=== PATIENT | female | born 1985 | race Caucasian/White ===

== ENCOUNTER 2017-04-28 19:06 | Emergency (ER) | payer MEDICAID ==
--- NOTE | 2017-04-28 20:03 | ER Document Report ---
HPI - HPI Pain Level: 4 Context: 31 yo female c/o cough x 4 days. Associated Symptoms: Body/muscle aches, Nonproductive cough Exacerbated by: Denies Relieved by: Denies Similar symptoms previously: Yes Recently seen / treated by doctor: No - CARDIOVASCULAR Cardiovascular: DENIES: Chest pain - DERM Skin Color: Normal Past Medical History - General Information source: Patient - Social History Smoking Status: Current Every Day Smoker Chew tobacco use (# tins/day): No Frequency of alcohol use: None Drug Abuse: None Lives with: Family Family History: Reviewed & Not Pertinent Pulmonary Medical History: Reports: Hx Asthma Renal/ Medical History: Denies: Hx Peritoneal Dialysis Past Surgical History: Reports: Hx Abdominal Surgery - hernia, Hx Section - x2, Hx Cholecystectomy - Immunizations Hx Diphtheria, Pertussis, Tetanus Vaccination: Yes Vertical Provider Document - CONSTITUTIONAL Agree With Documented VS: Yes Exam Limitations: No Limitations General Appearance: WD/WN, No Apparent Distress - INFECTION CONTROL TRAVEL OUTSIDE OF THE [place] IN LAST 30 DAYS: No - HEENT HEENT: Atraumatic, PERRLA - NECK Neck: Normal Inspection, Supple - RESPIRATORY Respiratory: Rhonchi - few rhonci RLL, no wheeze O2 Sat by Pulse Oximetry: 99 - CARDIOVASCULAR Cardiovascular: Regular Rate, Regular Rhythm - NEURO Level of Consciousness: Awake, Alert, Appropriate - DERM Integumentary: Warm, Dry Course - Re-evaluation Re-evalutation: 04/28/17 20:02 H&P c/w viral URI. CXR negative for pneumonia. results reviewed with patient. no resp distress. will treat symptomatically. pt stable for discharge - Vital Signs Vital signs: Temp Pulse Resp BP Pulse Ox 99.3 F 80 16 150/88 H 99 04/28/17 19:20 04/28/17 19:20 04/28/17 19:20 04/28/17 19:20 04/28/17 19:20 Discharge - Discharge Clinical Impression: URI (upper respiratory infection) Qualifiers: URI type: unspecified viral URI Qualified Code(s): J06.9 - Acute upper respiratory infection, unspecified; B97.89 - Other viral agents as the cause of diseases classified elsewhere Condition: Stable Disposition: HOME, SELF-CARE Instructions: Upper Respiratory Illness ([facility]), Cough Suppressant & Expectorant Medications Additional Instructions: Your chest xray is negative for pneumonia Your symptoms are consistent with a viral upper respiratory infection, no antibiotics are indicated recommend over the counter Mucinex along with prescription cough suppressant as needed Prescriptions: Benzonatate [Tessalon Perles 100 mg Capsule] 200 mg PO Q8HP PRN #40 capsule PRN Reason:
--- NOTE | 2017-04-28 20:23 | RADIOLOGY REPORT (SQ) ---
EXAM DESCRIPTION: CHEST PA/LAT COMPLETED DATE/TIME: 04/28/2017 8:09 pm REASON FOR STUDY: cough COMPARISON: None. EXAM PARAMETERS: NUMBER OF VIEWS: two views TECHNIQUE: Digital Frontal and Lateral radiographic views of the chest acquired. RADIATION DOSE: NA LIMITATIONS: none FINDINGS: LUNGS AND PLEURA: No opacities, masses or pneumothorax. No pleural effusion. MEDIASTINUM AND HILAR STRUCTURES: No masses or contour abnormalities. HEART AND VASCULAR STRUCTURES: Heart normal size. No evidence for failure. BONES: No acute findings. HARDWARE: None in the chest. OTHER: No other significant finding. IMPRESSION: NO SIGNIFICANT RADIOGRAPHIC FINDING IN THE CHEST. TECHNICAL DOCUMENTATION: JOB ID: [id number] [employer]- All Rights Reserved
[2017-04-28] MEDS ORDERED: BENZONATATE 100 MG CAPSULE PO ONE (20:31)
[2017-04-28 20:47] VITALS: BP 135/96
== END 2017-04-28 20:50 | disposition home or self-care (01) ==
LOC: ER 19:06
DX: J06.9 Acute upper respiratory infection, unspecified (principal); B97.89 Other viral agents as the cause of diseases classified elsewhere; M79.1 Myalgia; F17.200 Nicotine dependence, unspecified, uncomplicated; Z90.49 Acquired absence of other specified parts of digestive tract
CPT/HCPCS: 99283; 71020; J3490

== ENCOUNTER 2017-05-09 13:28 | Emergency (ER) | payer MEDICAID ==
--- NOTE | 2017-05-09 14:42 | ER Document Report ---
ED General - General Chief Complaint: Sore Throat Stated Complaint: NAUSEA Time Seen by Provider: 05/09/17 14:27 Notes: Patient is a 31-year-old female presents emergency department complaining of dry cough intermittently for the past week and a half but more recently sore throat with hoarseness and occasional nausea. Patient states that she was seen here over week ago and diagnosed with an upper respiratory infection which resolved. Patient states that for the past 2 days she has had a sore throat that she described as scratchy. She denies any difficulty breathing, difficulty swallowing. She denies any fever, chills, nasal drainage, sinus pressure, headache, earache. States she has been taking [id number] cough medicine without any relief. She denies any sick contacts. Patient is a smoker. She smokes half a pack a day. She does have a history of asthma. She states that she does not take her Ventolin inhaler. Primary care physician is in [place]. TRAVEL OUTSIDE OF THE [place] IN LAST 30 DAYS: No - Related Data Allergies/Adverse Reactions: acetaminophen [From [place]] Allergy (Verified 04/28/17 19:19) amoxicillin Allergy (Verified 04/28/17 19:19) hydrocodone [From [place]] Allergy (Verified 04/28/17 19:19) Penicillins Allergy (Verified 04/28/17 19:19) Past Medical History - Social History Smoking Status: Current Every Day Smoker Family History: Reviewed & Not Pertinent Patient has suicidal ideation: No Patient has homicidal ideation: No Pulmonary Medical History: Reports: Hx Asthma Renal/ Medical History: Denies: Hx Peritoneal Dialysis Past Surgical History: Reports: Hx Abdominal Surgery - hernia, Hx Section - x2, Hx Cholecystectomy - Immunizations Hx Diphtheria, Pertussis, Tetanus Vaccination: Yes Review of Systems - Review of Systems Constitutional: No symptoms reported EENT: See HPI Cardiovascular: No symptoms reported Respiratory: No symptoms reported Gastrointestinal: See HPI Genitourinary: No symptoms reported -: Yes All other systems reviewed and negative Physical Exam - Vital signs Vitals: Temp Pulse Resp BP Pulse Ox 98.8 F 84 16 144/100 H 99 05/09/17 13:30 05/09/17 13:30 05/09/17 13:30 05/09/17 13:30 05/09/17 13:30 - Notes Notes: PHYSICAL EXAM GENERAL: Alert, interacts well. HEAD: Normocephalic, atraumatic. EYES: Pupils equal, round, and reactive to light. Extraocular movements intact. ENT: Oral mucosa moist, tongue midline. Uvula midline. Airway patent. No evidence of tonsillar enlargement, peritonsillar abscess, retropharyngeal abscess. NECK: Full range of motion. Supple. Trachea midline. LUNGS: Clear to auscultation bilaterally, no wheezes, rales, or rhonchi. No respiratory distress. HEART: Regular rate and rhythm. No murmurs, gallops, or rubs. ABDOMEN: Soft, nondistended, nontender. No guarding, rebound, or rigidity.. Bowel sounds present in all 4 quadrants. EXTREMITIES: Moves all 4 extremities spontaneously. No edema, radial and dorsalis pedis pulses 2/4 bilaterally. No cyanosis. NEUROLOGICAL: Alert and oriented x4. Normal speech. PSYCH: Normal affect, normal mood. SKIN: Warm, dry, normal turgor. No rashes or lesions noted. Course - Re-evaluation Re-evalutation: 05/09/17 16:14 Patient presents with multiple vague complaints that did not appear to be concerning for any acute life-threatening pathology. Vitals are within normal limits at triage and at time of discharge. Physical examination is unremarkable. Patient has tolerated oral intake without difficulty. Patient was not noted to be in distress at any point during their ER visit. At this time, based on the reassuring evaluation, I do not suspect an acute [place], pulmonary embolus, aortic dissection, acute intra-abdominal pathology, stroke, or sepsis.Will discharge with return precautions and follow-up recommendations. Verbal discharge instructions given a the bedside and opportunity for questions given. Medication warnings reviewed. Patient is in agreement with this plan and has verbalized understanding of return precautions and the need for primary care follow-up in the next 24-72 hours. - Vital Signs Vital signs: Temp Pulse Resp BP Pulse Ox 98.8 F 84 16 144/100 H 99 05/09/17 13:30 05/09/17 13:30 05/09/17 13:30 05/09/17 13:30 05/09/17 13:30 Discharge - Discharge Clinical Impression: Sore throat Rhinitis Qualifiers: Rhinitis type: allergic Chronicity: acute Allergic rhinitis trigger: unspecified Allergic rhinitis seasonality: seasonal Qualified Code(s): J30.2 - Other seasonal allergic rhinitis Condition: Good Disposition: HOME, SELF-CARE Instructions: Sore Throat ([facility]), OTC Antihistamines ([facility]), Hay Fever ([facility]), Nasal Corticosteroid Inhaler ([facility]) Additional Instructions: Please look into purchasing Corrine-D or Claritin-D [id number] to help with your seasonal allergies. Otherwise he can follow-up with your primary care provider
[2017-05-09 15:14] LABS: APPEARANCE,URINE CLEAR; BILIRUBIN,URINE NEGATIVE (NEGATIVE); GLUCOSE, URINE NEGATIVE (NEGATIVE); KETONES,URINE NEGATIVE (NEGATIVE); LEUKOCYTE ESTERASE,URINE NEGATIVE (NEGATIVE); NITRITE,URINE NEGATIVE (NEGATIVE); PROTEIN,URINE NEGATIVE (NEGATIVE); URINE SPECIFIC GRAVITY 1.008; UROBILINOGEN,URINE NEGATIVE mg/dL (<2.0)
[2017-05-09] MEDS ORDERED: LORATADINE/PSEUDOEPHEDRINE SUL 10-240 MG TAB.SR.24H PO ONE (16:17)
[2017-05-09 16:30] VITALS: BP 138/89
== END 2017-05-09 16:25 | disposition home or self-care (01) ==
LOC: ER 13:28
DX: J02.9 Acute pharyngitis, unspecified (principal); J45.909 Unspecified asthma, uncomplicated; R05 Cough; R49.0 Dysphonia; R11.0 Nausea; F17.200 Nicotine dependence, unspecified, uncomplicated; Z88.5 Allergy status to narcotic agent; Z88.0 Allergy status to penicillin
CPT/HCPCS: 81001; 81025; 87070; 87880; 99283

== ENCOUNTER 2017-05-15 21:02 | Emergency (ER) | payer MEDICAID ==
[2017-05-15] MEDS ORDERED: ONDANSETRON HCL INJ/PF 4 MG/2 ML SDV IV ONE (21:39)
--- NOTE | 2017-05-15 21:49 | ER Document Report ---
ED Medical Screen (RME) - General Chief Complaint: Abdominal Pain Stated Complaint: ABDOMINAL PAIN Time Seen by Provider: 05/15/17 21:31 TRAVEL OUTSIDE OF THE [place] IN LAST 30 DAYS: No - HPI Notes: 05/15/17 21:41 Patient is a 31-year-old asthma and tobacco abuse who presents the ED complaining of abdominal pain, nausea without vomiting 2 days. Pt states that she has felt diaphoretic on occasion as well. Patient states she still eating and drinking without any difficulties, but does have a decreased appetite. The pain does not radiate and is described as an ache/sharp. Patient states that her abdominal pain is located in the epigastric region as well as the right lower quadrant area. Patient states that she has had a cholecystectomy in the past as well as C-sections. Sitting and laying supine help. Ambulation, coughing, laughing make the pain worse. Denies any headache, fever, URI, sore throat, chest pain, palpitations, syncope, cough, shortness of breath, wheeze, dyspnea, diarrhea/constipation, urinary retention, dysuria, hematuria, back pain , loss of control of bowel or bladder, or rash. I did not order any imaging due to the limited abdominal exam (no table for accurate assessment). I have treated and performed a rapid initial assessment of this patient. A comprehensive ED assessment and evaluation of the patient, analysis of test results and completion of medical decision making process will be conducted by additional ED providers. PHYSICAL EXAMINATION: GENERAL: Well-appearing, well-nourished and in no acute distress. Pt sitting comfortably with legs crossed watching a video on her phone. ambulating w/o any difficulty. EYES: Pupils equal round and reactive to light, extraocular movements intact, sclera anicteric, conjunctiva are normal. LUNGS: Breath sounds clear to auscultation bilaterally and equal. No wheezes rales or rhonchi. HEART: Regular rate and rhythm without murmurs, rubs, gallops. ABDOMEN: Soft, nondistended abdomen. No guarding, no rebound. No masses appreciated. Normal bowel sounds present. No CVA tenderness bilaterally. Tenderness to the epigastric area as well as the RLQ, but difficult to accurately assess due to no exam table. PSYCH: Normal mood, normal affect. - Related Data Allergies/Adverse Reactions: acetaminophen [From [place]] Allergy (Verified 05/09/17 16:43) amoxicillin Allergy (Verified 05/09/17 16:43) hydrocodone [From [place]] Allergy (Verified 05/09/17 16:43) Penicillins Allergy (Verified 05/09/17 16:43) Past Medical History Pulmonary Medical History: Reports: Hx Asthma Renal/ Medical History: Denies: Hx Peritoneal Dialysis Past Surgical History: Reports: Hx Abdominal Surgery - hernia, Hx Section - x2, Hx Cholecystectomy - Immunizations Hx Diphtheria, Pertussis, Tetanus Vaccination: Yes Physical Exam - Vital signs Vitals: Temp Pulse Resp BP Pulse Ox 99.1 F 103 H 18 143/87 H 100 05/15/17 21:04 05/15/17 21:04 05/15/17 21:04 05/15/17 21:04 05/15/17 21:04 Course - Vital Signs Vital signs: Temp Pulse Resp BP Pulse Ox 99.1 F 103 H 18 143/87 H 100 05/15/17 21:04 05/15/17 21:04 05/15/17 21:04 05/15/17 21:04 05/15/17 21:04
[2017-05-15 22:37] LABS: ABSOLUTE BASOPHILS # (AUTO) 0.1 10^3/uL (0.0-0.2); ABSOLUTE EOSINOPHILS # (AUTO) 0.3 10^3/uL (0.0-0.6); ABSOLUTE LYMPHOCYTES (AUTO) 2.9 10^3/uL (0.5-4.7); ABSOLUTE MONOCYTES (AUTO) 0.8 10^3/uL (0.1-1.4); ABSOLUTE NEUT (AUTO) 8.8 10^3/uL (1.7-8.2); BASOPHILS % (AUTO) 0.7 % (0-2); EOSINOPHILS % (AUTO) 2.3 % (0-6); HEMATOCRIT 35.9 % (36.0-47.0); HEMOGLOBIN 11.8 g/dL (12.0-15.5); HGB HCT DIFFERENCE -0.5; LYMPHOCYTES % (AUTO) 22.8 % (13-45); MEAN CORPUSCULAR HEMOGLOBIN 25.8 pg (27.0-33.4); MEAN CORPUSCULAR HGB CONC 32.9 g/dL (32.0-36.0); MEAN CORPUSCULAR VOLUME 79 fl (80-97); RED BLOOD COUNT 4.58 10^6/uL (3.72-5.28); RED CELL DISTRIBUTION WIDTH 16.3 % (11.5-14.0); SEGMENTED NEUTROPHILS % (AUTO) 68.2 % (42-78); WHITE BLOOD COUNT 12.9 10^3/uL (4.0-10.5)
[2017-05-15 22:48] LABS: APPEARANCE,URINE SLIGHTLY-CLOUDY; BILIRUBIN,URINE NEGATIVE (NEGATIVE); GLUCOSE, URINE NEGATIVE (NEGATIVE); KETONES,URINE NEGATIVE (NEGATIVE); LEUKOCYTE ESTERASE,URINE NEGATIVE (NEGATIVE); NITRITE,URINE NEGATIVE (NEGATIVE); PROTEIN,URINE NEGATIVE (NEGATIVE); URINE SPECIFIC GRAVITY 1.023
[2017-05-15] MEDS ORDERED: NORMAL SALINE 1000 ML 1,000 ML IV ONE (22:48)
--- NOTE | 2017-05-15 22:53 | ER Document Report ---
ED General - General Chief Complaint: Abdominal Pain Stated Complaint: ABDOMINAL PAIN Time Seen by Provider: 05/15/17 21:31 Notes: Patient is a 31-year-old female presents with complaint of abdominal pain and vomiting. Said symptoms started 724 hours ago. Pain is mostly in the right side of the abdomen. No diarrhea. No blood in stool. She does have history of cholecystectomy as well as ventral hernia repair. She says it hurts to sit up or cough. No abnormal vaginal discharge or bleeding. No dysuria. No other complaints at this time. TRAVEL OUTSIDE OF THE [place] IN LAST 30 DAYS: No - Related Data Allergies/Adverse Reactions: acetaminophen [From [place]] Allergy (Verified 05/09/17 16:43) amoxicillin Allergy (Verified 05/09/17 16:43) hydrocodone [From [place]] Allergy (Verified 05/09/17 16:43) Penicillins Allergy (Verified 05/09/17 16:43) Past Medical History - Social History Smoking Status: Unknown if Ever Smoked Frequency of alcohol use: None Drug Abuse: None Family History: Reviewed & Not Pertinent Patient has suicidal ideation: No Patient has homicidal ideation: No Pulmonary Medical History: Reports: Hx Asthma Renal/ Medical History: Denies: Hx Peritoneal Dialysis Past Surgical History: Reports: Hx Abdominal Surgery - hernia, Hx Section - x2, Hx Cholecystectomy - Immunizations Hx Diphtheria, Pertussis, Tetanus Vaccination: Yes Review of Systems - Review of Systems Notes: My Normal Review Basic REVIEW OF SYSTEMS: CONSTITUTIONAL : Denies fever, chills, or sweats. Denies recent illness. EENT: Denies eye, ear, throat, or mouth pain or symptoms. Denies nasal or sinus congestion. CARDIOVASCULAR: Denies chest pain. RESPIRATORY: Denies cough, cold, or chest congestion. Denies shortness of breath, difficulty breathing, or wheezing. GASTROINTESTINAL: Right-sided abdominal pain. Some vomiting. GENITOURINARY: Denies difficulty urinating, painful urination, burning, frequency, or blood in urine. FEMALE GENITOURINARY: Denies vaginal bleeding, abnormal or irregular periods. MUSCULOSKELETAL: Denies neck or back pain or joint pain or swelling. SKIN: Denies rash or skin lesions. NEUROLOGICAL: Denies altered mental status or loss of consciousness. Denies headache. Denies weakness or paralysis or loss of use of either side. Denies problems with gait or speech. Denies sensory or motor loss. ALL OTHER SYSTEMS REVIEWED AND NEGATIVE. Physical Exam - Vital signs Vitals: Temp Pulse Resp BP Pulse Ox 99.1 F 103 H 18 143/87 H 100 05/15/17 21:04 05/15/17 21:04 05/15/17 21:04 05/15/17 21:05/15/17 21:04 - Notes Notes: General Appearance: Well nourished, alert, cooperative, no acute distress, no obvious discomfort. Vitals: reviewed, See vital signs table. Head: no swelling or tenderness to the head Eyes: PERRL, EOMI, Conjuctiva clear Mouth: No decreasd moisture Throat: No tonsillar inflammation, No airway obstruction, Lungs: No wheezing, No rales, No rhonci, No accessory muscle use, good air exchange bilaterally. Heart: Normal rate, Regular rythm, No murmur, no rub Abdomen: Normal BS, soft, No rigidity, moderate pain to palpation over the right side of the abdomen., No guarding, no rebound, no abdominal masses, no organomegaly Extremities: strength 5/5 in all extremities, good pulses in all extremities, no swelling or tenderness in the extremities, no edema. Skin: warm, dry, appropriate color, no rash Neuro: speech clear, oriented x 3, normal affect, responds appropriately to questions. Course - Re-evaluation Re-evalutation: 05/16/17 03::28Patient's ultrasound results did show a endometrial lesion as well as the ovarian cyst. I informed her the importance of follow-up to make sure that these do not represent cancer. I did print off a copy of her ultrasound results and given to her so she could take him to see the vamp creaser. I have referred her to the vamp creaser. Patient otherwise clinically looks well and I feel safe to be discharged home. Patient encouraged to return to ER if she has worsening pain, vomiting, heavy bleeding, or feels unwell. Patient agrees with plan will be discharged home. Dictation of this chart was performed using voice recognition software; therefore, there may be some unintended grammatical errors. - Vital Signs Vital signs: Temp Pulse Resp BP Pulse Ox 99.1 F 103 H 18 143/87 H 100 05/15/17 21:04 05/15/17 21:04 05/15/17 21:04 05/15/17 21:04 05/15/17 21:04 - Laboratory Result Diagrams: 05/15/17 22:07 05/15/17 22:07 Laboratory results interpreted by me: 05/15/17 05/15/17 22:07 22:07 WBC 12.9 H Hgb 11.8 L Hct 35.9 L MCV 79 L MCH 25.8 L RDW 16.3 H Absolute Neutrophils 8.8 H Urine Urobilinogen 2.0 H Discharge - Discharge Clinical Impression: Lesion of endometrium Ovarian cyst Qualifiers: Laterality: bilateral Qualified Code(s): N83.201 - Unspecified ovarian cyst, right side Abdominal pain Qualifiers: Abdominal location: lower abdomen, unspecified Qualified Code(s): R10.30 - Lower abdominal pain, unspecified Condition: Good Disposition: HOME, SELF-CARE Instructions: Oral Narcotic Medication ([facility]) Additional Instructions: Please follow up with the vamp creaser for reevaluation and repeat ultrasounds to look at your ovarian cysts and also to determine if you require a biopsy of the endometrial lesion seen on Ultrasound. This is very important to do because occasionally this lesions can represent cancer. Please return to the ER if you have fevers, heavy bleeding, or feel unwell. Please take your ultrasound results with you to your appointment. Prescriptions: Tramadol HCl [Ultram 50 mg Tablet] 50 mg PO Q6HP PRN #12 tablet PRN Reason: Referrals: SAVANNA ESPINOZA MD [ACTIVE STAFF] - Follow up in 3-5 days
[2017-05-15 22:55] LABS: ALANINE AMINOTRANSFERASE 28 U/L (9-52); ALBUMIN 4.2 g/dL (3.5-5.0); ALKALINE PHOSPHATASE 82 U/L (38-126); ANION GAP 11 (5-19); ASPARTATE AMINO TRANSFERASE 17 U/L (14-36); BILIRUBIN,DIRECT 0.4 mg/dL (0.0-0.4); BILIRUBIN,TOTAL 0.6 mg/dL (0.2-1.3); BLOOD UREA NITROGEN 7 mg/dL (7-20); CALCIUM 9.2 mg/dL (8.4-10.2); CARBON DIOXIDE 23 mmol/L (22-30); CHLORIDE 107 mmol/L (98-107); GLUCOSE 76 mg/dL (75-110); LIPASE 154.3 U/L (23-300); SODIUM 140.8 mmol/L (137-145)
[2017-05-15] MEDS ORDERED: FENTANYL CITRATE INJ/PF 100 MCG/2 ML AMPUL IV ONE (23:29)
--- NOTE | 2017-05-16 02:01 | RADIOLOGY REPORT (SQ) ---
EXAM DESCRIPTION: CT ABD/PELVIS WITH IV ONLY COMPLETED DATE/TIME: 05/16/2017 1:11 am REASON FOR STUDY: RLQ abdominal pain COMPARISON: None. TECHNIQUE: CT scan of the abdomen and pelvis performed using helical scanning technique with dynamic intravenous contrast injection. No oral contrast. Images reviewed with lung, soft tissue, and bone windows. Reconstructed coronal and sagittal MPR images reviewed. Delayed images for evaluation of the urinary system also acquired. All images stored on PACS. All CT scanners at this facility use dose modulation, iterative reconstruction, and/or weight based d osing when appropriate to reduce radiation dose to as low as reasonably achievable (ALARA). [facility]: Dose Right [facility]: CareDose [facility]: Dose Right [facility]: Teradose 4D [facility]: [employer] CONTRAST TYPE AND DOSE: contrast/concentration: Isovue 370.00 mg/ml; Total Contrast Delivered: 93.0 ml; Total Saline Delivered: 22.0 ml RENAL FUNCTION: None required. The patient is less than 50 years old. RADIATION DOSE: Up-to-date CT equipment and radiation dose reduction techniques were employed. CTDIv ol: 19.6 - 19.6 mGy. DLP: 2047 mGy-cm.. LIMITATIONS: None. FINDINGS: LOWER CHEST: No significant findings. No nodules or infiltrates. LIVER: Normal size. No masses. No dilated ducts. SPLEEN: Normal size. No focal lesions. PANCREAS: No masses. No significant calcifications. No adjacent inflammation or peripancreatic fluid collections. Pancreatic duct not dilated. GALLBLADDER: Surgically absent. ADRENAL GLANDS: No significant masses or asymmetry. RIGHT KIDNEY AND URETER: No solid masses. No significant calcifications. No hydronephrosis or hyd roureter. Small likely benign cysts not definitively characterized. LEFT KIDNEY AND URETER: No solid masses. No significant calcifications. No hydronephrosis or hydr oureter. Small likely benign cysts not definitively characterize. AORTA AND VESSELS: No aneurysm. No dissection. Renal arteries, SMA, celiac without stenosis. RETROPERITONEUM: No retroperitoneal adenopathy, hemorrhage or masses. BOWEL AND PERITONEAL CAVITY: No masses or inflammatory changes. No free fluid or peritoneal masses. APPENDIX: Normal. PELVIS: Cystic prominence of bilateral ovaries measuring up to 3.5 cm on the left and 4.5 cm on the r ight. No free fluid. Moderate nonspecific distention of the urinary bladder. Nabothian cysts. ABDOMINAL WALL: No masses. No hernias. BONES: Minimal L5-S1 desiccated disc bulge. OTHER: No other significant finding. IMPRESSION: 1. Indeterminate cystic prominence of both ovaries measuring up to 4.5 cm on the right and 3.5 cm on left; pelvic sonogram recommended. 2. No acute findings. TECHNICAL DOCUMENTATION: JOB ID: [id number] Quality ID # [id number]: Final reports with documentation of one or more dose reduction techniques (e.g., Au tomated exposure control, adjustment of the mA and/or kV according to patient size, use of iterative reconstruction technique) 2010 [employer]- All Rights Reserved
--- NOTE | 2017-05-16 03:15 | RADIOLOGY REPORT (SQ) ---
EXAM DESCRIPTION: U/S NON OB PEL TV W/DOPPLER COMPLETED DATE/TIME: 05/16/2017 2:47 am REASON FOR STUDY: right pelvic pain, ovarian cyst COMPARISON: CT, 05/16/2017. TECHNIQUE: Dynamic and static grayscale images acquired of the pelvis via transvaginal approach and recorded on PACS. Additional selected color Doppler and spectral images recorded. LIMITATIONS: None. FINDINGS: UTERUS: 11.7 cm uterus contains a loop complex hypoechoic 1.2 cm component anteriorly with out significant vascularity possibly due to a fibroid. ENDOMETRIAL STRIPE: Endometrium contains a 1.6 x 1.5 x 1.1 cm complex predominantly hypoechoic compon ent without significant vascularity; remainder the stripe is 1.4 cm in thickness. CERVIX: No nabothian cysts. 3.4 cm length. RIGHT OVARY: A 5.3 cm right ovary contains a 4.3 cm complex cystic lesion. RIGHT OVARY DOPPLER: Normal arterial vascular flow without evidence for torsion. LEFT OVARY: A 4.0 cm left ovary contains a 3.4 cm cystic component. LEFT OVARY DOPPLER: Normal arterial vascular flow without evidence for torsion. FREE FLUID: None noted. OTHER: No other significant finding. MEASUREMENTS: UTERUS: 11.7 cm. ENDOMETRIAL STRIPE: Abnormal measuring up to 1.6 cm in thickness. RIGHT OVARY: 5.3 cm. LEFT OVARY: 4.0 cm. IMPRESSION: Indeterminate component of the endometrial stripe measures 1.6 cm and may indicate clot/ hemorrhage ; cannot exclude polyp/ neoplasm. Additionally, there are indeterminate lesions of both o varies measuring up to 4.3 cm on the right and 3.4 cm on the left. Recommend 6 week surveillance son ogram and/or UTILITY MANAGER consultation. TECHNICAL DOCUMENTATION: JOB ID: [id number]- All Rights Reserved
[2017-05-16 03:47] VITALS: BP 129/81
== END 2017-05-16 03:47 | disposition home or self-care (01) ==
LOC: ER 21:02
DX: N94.9 Unspecified condition associated with female genital organs and menstrual cycle (principal); N83.201 Unspecified ovarian cyst, right side; N83.202 Unspecified ovarian cyst, left side; R10.30 Lower abdominal pain, unspecified; R11.10 Vomiting, unspecified; J45.909 Unspecified asthma, uncomplicated; Z90.49 Acquired absence of other specified parts of digestive tract; Z88.6 Allergy status to analgesic agent; Z88.0 Allergy status to penicillin; Z88.5 Allergy status to narcotic agent
CPT/HCPCS: 99284; 96374; 96375; 36415; 83690; 85025; 81025; 80053; 81001; 76830; 93976; 74177; J3010; J2405; J7030

== ENCOUNTER 2017-09-10 23:00 | Emergency (ER) | payer MEDICAID ==
[2017-09-11 01:11] LABS: APPEARANCE,URINE SLIGHTLY-CLOUDY; BILIRUBIN,URINE NEGATIVE (NEGATIVE); COLOR,URINE YELLOW; GLUCOSE, URINE NEGATIVE (NEGATIVE); KETONES,URINE NEGATIVE (NEGATIVE); LEUKOCYTE ESTERASE,URINE NEGATIVE (NEGATIVE); NITRITE,URINE NEGATIVE (NEGATIVE); PROTEIN,URINE NEGATIVE (NEGATIVE); URINE SPECIFIC GRAVITY 1.019
--- NOTE | 2017-09-11 02:46 | ER Document Report ---
ED General - General Chief Complaint: Abdominal Pain Stated Complaint: ABDOMINAL PAIN Time Seen by Provider: 09/11/17 02:30 Mode of Arrival: Ambulatory Information source: Patient Notes: This is a 31-year-old female with a history of kidney stones, hernia with mesh repair who presents to the emergency room with intermittent abdominal pain for the past week. Patient denies any nausea, vomiting, diarrhea or fever. Most of the patient's discomfort seems to be in the suprapubic area. She denies any abnormal vaginal discharge TRAVEL OUTSIDE OF THE [place] IN LAST 30 DAYS: No - HPI Onset: Last week Onset/Duration: Gradual Quality of pain: Sharp Severity: Moderate Pain Level: 3 Associated symptoms: denies: Chills, Diarrhea, Fever, Nausea, Vomiting, Shortness of breath Exacerbated by: Denies Relieved by: Denies Similar symptoms previously: Yes Recently seen / treated by doctor: No - Related Data Allergies/Adverse Reactions: acetaminophen [From [place]] Allergy (Verified 05/09/17 16:43) amoxicillin Allergy (Verified 05/09/17 16:43) hydrocodone [From [place]] Allergy (Verified 05/09/17 16:43) Penicillins Allergy (Verified 05/09/17 16:43) Past Medical History - General Information source: Patient - Social History Smoking Status: Current Every Day Smoker Cigarette use (# per day): Yes - Half pack per day Chew tobacco use (# tins/day): No Smoking Education Provided: No Frequency of alcohol use: None Drug Abuse: None Lives with: Family Family History: Reviewed & Not Pertinent Patient has suicidal ideation: No Patient has homicidal ideation: No Pulmonary Medical History: Reports: Hx Asthma Renal/ Medical History: Denies: Hx Peritoneal Dialysis Past Surgical History: Reports: Hx Abdominal Surgery - hernia, Hx Section - x2, Hx Cholecystectomy - Immunizations Hx Diphtheria, Pertussis, Tetanus Vaccination: Yes Review of Systems - Review of Systems Constitutional: denies: Chills, Fever EENT: No symptoms reported Cardiovascular: No symptoms reported Respiratory: No symptoms reported Gastrointestinal: See HPI Genitourinary: No symptoms reported Female Genitourinary: No symptoms reported Musculoskeletal: No symptoms reported Skin: No symptoms reported Neurological/Psychological: No symptoms reported Physical Exam - Vital signs Vitals: Temp Pulse Resp BP Pulse Ox 98.2 F 79 16 147/88 H 100 09/11/17 01:37 09/11/17 01:37 09/11/17 01:37 09/11/17 01:37 09/11/17 01:37 Notes: Physical exam: GENERAL: 31-year-old female, alert and oriented 3, no acute distress HEAD: Atraumatic, normocephalic. EYES: Pupils equal round and reactive to light, extraocular movements intact, sclera anicteric, conjunctiva are normal. ENT: TMs normal, nares patent, oropharynx clear without exudates. Moist mucous membranes. NECK: Normal range of motion, supple without obvious mass or JVD. LUNGS: Breath sounds clear to auscultation bilaterally and equal. No wheezes rales or rhonchi. HEART: Regular rate and rhythm without murmurs, rubs or gallops. ABDOMEN: Soft, normoactive bowel sounds. No tenderness to palpation. No guarding, no rebound. No masses appreciated. EXTREMITIES: Normal range of motion, no pitting or edema. No clubbing or cyanosis. NEUROLOGICAL: Cranial nerves II through XII grossly intact. Normal speech, moving all extremities. PSYCH: Normal mood, normal affect. SKIN: Warm, Dry, normal turgor, no rashes or lesions noted. Course - Re-evaluation Re-evalutation: 09/11/17 04:03 Note: Patient does state she has had UTIs in the past. She states that she has not responded well to Bactrim in the past. She does states she has had Keflex in the past without any problem. - Vital Signs Vital signs: Temp Pulse Resp BP Pulse Ox 98.2 F 79 16 147/88 H 100 09/11/17 01:37 09/11/17 01:37 09/11/17 01:37 09/11/17 01:37 09/11/17 01:37 - Laboratory Laboratory results interpreted by me: 09/11/17 00:20 Urine Urobilinogen 2.0 H - Diagnostic Test Radiology reviewed: Image reviewed, Reports reviewed - X-rays show no evidence of obstruction Discharge - Discharge Clinical Impression: UTI Condition: Stable Disposition: HOME, SELF-CARE Additional Instructions: Thank you for choosing [facility] for your care. The examination and treatment you have received in the Emergency Department today has been rendered on an emergency basis only and is not intended to be a substitute for complete medical care. You should contact your doctor as it is important that she/he examine you for any new or remaining problems. If your problem worsens or new symptoms appear and you are unable to arrange prompt follow-up care, return to the Emergency Department. Specific signs to look out for: Worsening abdominal pain, vomiting, not tolerating fluids or any concerns or getting worse Any other instructions: Rest, drink plenty of fluids, take antibiotics as prescribed. Primary Care Doctor's affiliated with [facility]: If you do not have a primary care doctor or you are unable to get an appointment during that time, you can try one of the doctor's below. These are internal medicine doctor's that have admitting priveledges to the hospital ( they will see you both in the office as well as in this hospital if you are ever hospitalized here). Dr. Alan Mendez [address], [place] [address] [phone] Dr Brooks Address: [address] , [place] [address] Dr Bermudez Address: [address] , [place] [address] If you don't have insurance: follow-up at the [facility] which is a free clinic. [address], [place] [address] [phone] Prescriptions: Cephalexin Monohydrate [Keflex 500 mg Capsule] 500 mg PO Q6H 5 Days capsule
--- NOTE | 2017-09-11 03:46 | RADIOLOGY REPORT (SQ) ---
EXAM DESCRIPTION: ACUTE ABDOMEN SERIES CLINICAL HISTORY: abdominal pain COMPARISON: None. FINDINGS: Single view of the chest with upright and spine views of the abdomen. Cardiomediastinal silhouette has normal size and contour. No consolidation, pneumothorax, pleural effusion. Prior cholecystectomy. Scattered air-filled loops of nondilated large and small bowel. Moderate amount of stool. No definite abnormal calcifications identified. Pelvic soft tissues are unremarkable. No acute osseous abnormalities. IMPRESSION: 1. No acute pulmonary process. 2. Nonobstructive bowel gas pattern.
[2017-09-11 04:24] VITALS: BP 139/72
== END 2017-09-11 04:24 | disposition home or self-care (01) ==
LOC: ER 23:00
DX: N39.0 Urinary tract infection, site not specified (principal); R10.9 Unspecified abdominal pain; F17.210 Nicotine dependence, cigarettes, uncomplicated
CPT/HCPCS: 74022; 81001; 81025; 99284

== ENCOUNTER 2017-10-04 17:09 | Emergency (ER) | payer MEDICAID ==
--- NOTE | 2017-10-04 18:39 | RADIOLOGY REPORT (SQ) ---
EXAM DESCRIPTION: HAND LEFT 3 VIEWS COMPLETED DATE/TIME: 10/04/2017 6:29 pm REASON FOR STUDY: pain left third finger COMPARISON: None. EXAM PARAMETERS: NUMBER OF VIEWS: Three views. TECHNIQUE: AP, lateral and oblique radiographic images acquired of the left hand. LIMITATIONS: None. FINDINGS: MINERALIZATION: Normal. BONES: Chronic appearing incompletely healed volar plate fracture involving the base of the 3rd middl e phalanx. Bones otherwise intact. JOINTS: No effusions. SOFT TISSUES: No soft tissue swelling. No foreign body. OTHER: No other significant finding. IMPRESSION: NO DEFINITE RADIOGRAPHIC EVIDENCE OF ACUTE INJURY. CHRONIC APPEARING INCOMPLETELY HEALE D VOLAR PLATE FRACTURE INVOLVING THE BASE OF THE 3RD MIDDLE PHALANX. CORRELATE WITH POINT TENDERNESS AND HISTORY OF PRIOR TRAUMA TECHNICAL DOCUMENTATION: JOB ID: [id number] [employer]- All Rights Reserved
--- NOTE | 2017-10-04 18:47 | ER Document Report ---
ED Hand/Wrist Injury - General Chief Complaint: Finger Injury Stated Complaint: FINGER INJURY Time Seen by Provider: 10/04/17 18:03 Mode of Arrival: Ambulatory Information source: Patient Notes: 32-year-old female presents to ED for complaint of left hand pain and swelling to the third finger. She states she was doing a lot of cleaning last night does not know what she did to the finger but it is swollen and painful. She states she took ibuprofen just before she came to the emergency room. She states she does not remember injuring this finger. TRAVEL OUTSIDE OF THE [place] IN LAST 30 DAYS: No - HPI Injury to: Middle finger Onset: This morning - Around 1 AM Where: Home, Indoors Timing: Still present Quality of pain: Achy, Sharp Pain Level: 4 Context: Other - States she was doing a lot of cleaning does not know how she injured it is started hurting around 1 AM and this morning it was swollen - Related Data Allergies/Adverse Reactions: acetaminophen [From [place]] Allergy (Verified 10/04/17 17:10) amoxicillin Allergy (Verified 10/04/17 17:10) hydrocodone [From [place]] Allergy (Verified 10/04/17 17:10) Penicillins Allergy (Verified 10/04/17 17:10) Past Medical History - General Information source: Patient - Social History Smoking Status: Current Every Day Smoker Cigarette use (# per day): Yes - Half pack per day Chew tobacco use (# tins/day): No Smoking Education Provided: Yes - 4 minutes Frequency of alcohol use: None Drug Abuse: None Lives with: Spouse/Significant other Family History: Arthritis, COPD, DM, Hypertension. denies: CAD, CVA, Hyperlipidemia, Malignancy, Thyroid Disfunction Patient has suicidal ideation: No Patient has homicidal ideation: No - Past Medical History Cardiac Medical History: Reports: None Pulmonary Medical History: Reports: Hx Asthma EENT Medical History: Reports: None Neurological Medical History: Reports: None Endocrine Medical History: Reports: None Renal/ Medical History: Reports: None Malignancy Medical History: Reports: None GI Medical History: Reports: None Musculoskeltal Medical History: Reports Hx Musculoskeletal Trauma Skin Medical History: Reports None Psychiatric Medical History: Reports: None Traumatic Medical History: Reports: None Past Surgical History: Reports: Hx Abdominal Surgery - hernia, Hx Section - x2, Hx Cholecystectomy, Hx Vascular Surgery - Repair of artery to right hand - Immunizations Hx Diphtheria, Pertussis, Tetanus Vaccination: Yes Review of Systems - Review of Systems Notes: Constitutional: [PRESENT: as per HPI. ABSENT: chills, fever(s), headache(s), weight gain, weight loss] Eyes: [ABSENT: visual disturbances] Ears: [ABSENT: hearing changes] Cardiovascular: [ABSENT: chest pain, dyspnea on exertion, edema, orthropnea, palpitations] Respiratory: [ABSENT: cough, hemoptysis] Gastrointestinal: [ABSENT: abdominal pain, constipation, diarrhea, hematemesis, hematochezia, nausea, vomiting] Genitourinary: [ABSENT: dysuria, hematuria] Musculoskeletal: Pain and swelling to the left third finger. States she does not remember injuring it but she was done a lot of housecleaning last night about 1:00 started her and this morning it was swollen when she woke up. Integumentary: Swelling to the left third finger no bruising no lacerations no abrasions Neurological: [ABSENT: abnormal gait, abnormal speech, confusion, dizziness, focal weakness, syncope] Psychiatric: [ABSENT: anxiety, depression, homicidal ideation, suicidal ideation ] Endocrine: [ABSENT: cold intolerance, heat intolerance, menstrual abnormalities , polydipsia, polyuria] Hematologic/Lymphatic: [ABSENT: easy bleeding, easy bruising, lymphadenopathy] Physical Exam - Vital signs Vitals: Temp Pulse BP Pulse Ox 98.9 F 78 151/94 H 100 10/04/17 17:20 10/04/17 17:20 10/04/17 17:20 10/04/17 17:20 - Notes Notes: PHYSICAL EXAMINATION: Blood pressure was 132/76 when I examined the patient as I did a manual blood pressure at that time GENERAL: 32-year-old well-appearing, well-nourished and in no acute distress. HEAD: Atraumatic, normocephalic. EYES: Pupils equal round and reactive to light, extraocular movements intact, conjunctiva are normal. ENT: Nares patent, oropharynx clear without exudates. Moist mucous membranes. NECK: Normal range of motion, supple without lymphadenopathy LUNGS: Breath sounds clear to auscultation bilaterally and equal. No wheezes rales or rhonchi. HEART: Regular rate and rhythm without murmurs ABDOMEN: Soft, nontender, nondistended abdomen. No guarding, no rebound. No masses appreciated. Female : deferred Musculoskeletal: Pain with range of motion to left third finger, swelling to left third finger. No bruising lacerations or abrasions to the finger no cyanosis. NEUROLOGICAL: Cranial nerves grossly intact. Normal speech, normal gait. Normal sensory, motor exams PSYCH: Normal mood, normal affect. SKIN: Warm, Dry, normal turgor, no rashes or lesions noted. Course - Re-evaluation Re-evalutation: 10/04/17 18:47 Discussed x-ray with patient and written report given to patient to follow-up with orthopedics. Patient has an old fracture to the base of the third finger on the left hand. This is with point tenderness is to the patient. Patient states she does not remember fracturing this finger at any time in the past. Patient was instructed on use of elevation ice and ibuprofen for the pain in her finger. Patient verbalized understanding of her instructions and need to follow-up with orthopedics. - Vital Signs Vital signs: Temp Pulse Resp BP Pulse Ox 98.9 F 78 132/76 H 100 10/04/17 17:20 10/04/17 17:20 10/04/17 18:21 10/04/17 17:20 - Diagnostic Test Radiology reviewed: Image reviewed, Reports reviewed Discharge - Discharge Clinical Impression: Pain and swelling to left third finger Condition: Stable Disposition: HOME, SELF-CARE Additional Instructions: You were seen today for pain and swelling to the left third finger. There is no acute injuries to this finger. X-rays show a chronic incompletely healed volar plate fracture to the base of the third finger. You will need to follow-up with orthopedics for further treatment to this incompletely healed fracture. ICE & ELEVATION: Apply ice packs frequently against the painful area. Many different schedules are recommended, such as "20 minutes on, 20 minutes off" or "one hour ice, two hours rest." If you need to work, you may need to go longer between ice treatments. You should plan to have the area ice packed AT LEAST one- fourth of the time. The ice should be applied over the wrap, tape, or splint, or over a layer of cloth -- not directly against the skin. Some ice bags have a built-in cloth and can be put directly on the skin. Your injured part should be elevated as much as possible over the next 48 hours. Try to keep the injury above the level of the heart. Avoid use of the injured area. Elevation and rest will decrease the swelling. USE OF NZTI-FIY-XUHSGPA IBUPROFEN: Ibuprofen (Advil, Nuprin, Medipren, Motrin IB) is a medication for fever and pain control. In addition, it has anti- inflammatory effects which may be beneficial, especially in the treatment of injuries. It's best to take ibuprofen with food. Persons with ulcer disease or allergy to aspirin should notify their physician of this before taking ibuprofen. Ibuprofen can be given every four to six hours, for a total of four doses daily. Age Pain or fever dose Antiinflammatory dose 6-8 yr 200 mg (1 tab) 200 mg (1 tab) 9-11 yr 200 mg (1 tab) 200-400 mg (1-2 tab) 11-14 yr 200-400 mg (1-2 tab) 400 mg (2 tab) 15-adult 400 mg (2 tab) 600 mg (3 tab) FOLLOW-UP CARE: If you have been referred to a physician for follow-up care, call the physician s office for an appointment as you were instructed or within the next two days. If you experience worsening or a significant change in your symptoms, notify the physician immediately or return to the Emergency Department at any time for re-evaluation. Forms: Elevated Blood Pressure, Smoking Cessation Education Referrals: GRACIE CARTER DO [ACTIVE STAFF] - Follow up as needed
[2017-10-04 20:00] VITALS: BP 128/88
== END 2017-10-04 19:58 | disposition home or self-care (01) ==
LOC: ER 17:09
DX: S69.92XA Unspecified injury of left wrist, hand and finger(s), initial encounter (principal); M79.645 Pain in left finger(s); M79.89 Other specified soft tissue disorders; F17.210 Nicotine dependence, cigarettes, uncomplicated; X58.XXXA Exposure to other specified factors, initial encounter
CPT/HCPCS: 99283; 99406

== ENCOUNTER 2017-10-22 20:50 | Emergency (ER) | payer MEDICAID ==
[2017-10-22 20:58] VITALS: BP 146/91
[2017-10-22] MEDS ORDERED: CEPHALEXIN 500 MG CAPSULE PO ONE (22:24)
[2017-10-22] MEDS ORDERED: SULFAMETHOXAZOLE/TRIMETHOPRIM 800-160 MG TABLET PO ONE (22:24)
--- NOTE | 2017-10-22 22:30 | ER Document Report ---
ED Skin Rash/Insect Bite/Abscs - General Chief Complaint: Sore on R groin area Stated Complaint: SWOLLEN AREA Time Seen by Provider: 10/22/17 21:38 Mode of Arrival: Ambulatory Information source: Patient Notes: 32-year-old female presents to ED for a swollen painful area to the right groin 5 days. She states is not very large but it is painful when something touches it otherwise it does not hurt. TRAVEL OUTSIDE OF THE [place] IN LAST 30 DAYS: No - HPI Patient complains to provider of: Tender/swollen area Onset: Other - 5 days Onset/Duration: Gradual Quality of pain: Sharp - When touched or when her close touch Severity: Moderate Skin Character: Abscess Quality of rash: Painful - When touched Identify cause: No Exacerbated by: Other - When either someone touches it or her clothes touch it Relieved by: Denies Similar symptoms previously: No Recently seen / treated by doctor: No - Related Data Allergies/Adverse Reactions: acetaminophen [From [place]] Allergy (Verified 10/04/17 17:10) amoxicillin Allergy (Verified 10/04/17 17:10) hydrocodone [From [place]] Allergy (Verified 10/04/17 17:10) latex Allergy (Verified 10/22/17 20:54) Penicillins Allergy (Verified 10/04/17 17:10) Past Medical History - General Information source: Patient - Social History Smoking Status: Current Every Day Smoker Cigarette use (# per day): Yes - Half pack a day Chew tobacco use (# tins/day): No Smoking Education Provided: Yes - 4 minutes Frequency of alcohol use: None Drug Abuse: None Lives with: Spouse/Significant other Family History: Arthritis, COPD, DM, Hypertension. denies: CAD, CVA, Hyperlipidemia, Malignancy, Thyroid Disfunction Patient has suicidal ideation: No Patient has homicidal ideation: No - Past Medical History Cardiac Medical History: Reports: None Pulmonary Medical History: Reports: Hx Asthma EENT Medical History: Reports: None Neurological Medical History: Reports: None Endocrine Medical History: Reports: None Renal/ Medical History: Reports: None Malignancy Medical History: Reports: None GI Medical History: Reports: None Musculoskeltal Medical History: Reports Hx Musculoskeletal Trauma Skin Medical History: Reports Hx Cellulitis Psychiatric Medical History: Reports: None Traumatic Medical History: Reports: None Infectious Medical History: Reports: None Past Surgical History: Reports: Hx Abdominal Surgery - hernia, Hx Section - x2, Hx Cholecystectomy, Hx Vascular Surgery - Repair of artery to right hand - Immunizations Hx Diphtheria, Pertussis, Tetanus Vaccination: Yes Review of Systems - Review of Systems Notes: Constitutional: [PRESENT: as per HPI. ABSENT: chills, fever(s), headache(s), weight gain, weight loss] Eyes: [ABSENT: visual disturbances] Ears: [ABSENT: hearing changes] Cardiovascular: [ABSENT: chest pain, dyspnea on exertion, edema, orthropnea, palpitations] Respiratory: [ABSENT: cough, hemoptysis] Gastrointestinal: [ABSENT: abdominal pain, constipation, diarrhea, hematemesis, hematochezia, nausea, vomiting] Genitourinary: [ABSENT: dysuria, hematuria] Musculoskeletal: [ABSENT: joint swelling] Integumentary: Small tender red area to the right groin area Neurological: [ABSENT: abnormal gait, abnormal speech, confusion, dizziness, focal weakness, syncope] Psychiatric: [ABSENT: anxiety, depression, homicidal ideation, suicidal ideation ] Endocrine: [ABSENT: cold intolerance, heat intolerance, menstrual abnormalities , polydipsia, polyuria] Hematologic/Lymphatic: [ABSENT: easy bleeding, easy bruising, lymphadenopathy] Physical Exam - Vital signs Vitals: Temp Pulse Resp BP Pulse Ox 98.5 F 89 20 146/91 H 100 10/22/17 20:57 10/22/17 20:57 10/22/17 20:57 10/22/17 20:57 10/22/17 20:57 - Notes Notes: PHYSICAL EXAMINATION: GENERAL: Well-appearing, well-nourished and in no acute distress. HEAD: Atraumatic, normocephalic. EYES: Pupils equal round and reactive to light, extraocular movements intact, conjunctiva are normal. ENT: Nares patent, oropharynx clear without exudates. Moist mucous membranes. NECK: Normal range of motion, supple without lymphadenopathy LUNGS: Breath sounds clear to auscultation bilaterally and equal. No wheezes rales or rhonchi. HEART: Regular rate and rhythm without murmurs ABDOMEN: Soft, nontender, nondistended abdomen. No guarding, no rebound. No masses appreciated. Female : deferred Musculoskeletal: Normal range of motion, no pitting or edema. No cyanosis. NEUROLOGICAL: Cranial nerves grossly intact. Normal speech, normal gait. Normal sensory, motor exams PSYCH: Normal mood, normal affect. SKIN: Tender red swollen area to right mons pubis. Not large enough to I&D at this time. Will treat with antibiotics given instructions for Epson salt soaks and have her return to the ED if the area increases in size or tenderness. Course - Re-evaluation Re-evalutation: 10/22/17 22:35 Patient was treated with Bactrim and Keflex in the emergency room and discharged home with prescription for the same. Patient was given instructions on Epson salt soaks to the area. Patient was instructed to return to the ED or follow-up with her primary doctor for any increase size of the abscess, increase in the tenderness to the area or any fever develops. Patient verbalized understanding of instructions. Patient was discharged home. - Vital Signs Vital signs: Temp Pulse Resp BP Pulse Ox 98.5 F 89 20 146/91 H 100 10/22/17 20:57 10/22/17 20:57 10/22/17 20:57 10/22/17 20:57 10/22/17 20:57 Discharge - Discharge Clinical Impression: abscess to mons pubis Condition: Stable Disposition: HOME, SELF-CARE Instructions: Family Physicians / Practices Additional Instructions: ABSCESS: You have an abscess (boil). This a pus-forming infection, usually due to staph. Some boils may be left to drain on their own, but most require lancing. From the time the tender lump first appears, it may be three or four days before the abscess is ready to gracie. Local heat and rest help at this stage of treatment. An antibiotic may prevent spread of the infection. Once the abscess is opened, packing may be placed into it. This is done so pus is not sealed inside by premature closure of the cavity. The packing will be removed at your follow-up visit or you may be advised to remove it yourself at home. Sometimes this packing must be replaced a few times during healing. The wound will heal with surprisingly little scar. Depending on the size and location of an abscess, healing can take one to four weeks. You may shower and wash the area around the incision site two or three times a day. Antibiotics may be prescribed, but are usually not necessary after an abscess has been drained. If you develop fever, chills, worsening pain, or increasing swelling in the area, call the doctor or return immediately. CEPHALEXIN: The antibiotic you've been prescribed is a member of the cephalosporin class. This type of antibiotic covers a wide variety of infections, including those of the skin, lungs, and urinary tract. It's useful for staph infections. This antibiotic is slightly similar to the penicillin family. In rare cases , a person who is allergic to penicillin will also be allergic to this medication. If you have had a severe allergic reaction to penicillin, and have not taken this antibiotic since that time, notify your doctor. Antibiotics which cover many germs ("broad spectrum" antibiotics) are more likely to cause diarrhea or "yeast" infections. Women prone to vaginal yeast problems may suffer an attack after taking this antibiotic. In infants, oral thrush (white spots "stuck" on the cheek) or yeast diaper rash may result. See your doctor if these problems occur. Call at once if you develop itching, hives , shortness of breath, or lightheadedness. TRIMETHOPRIM-SULFA: You have been given a prescription for trimethoprim-sulfa (TMS, Septra, Bactrim). This is a combination antibiotic of the sulfa class, often used for urinary tract infections, middle ear infections, bronchitis, shigella intestinal infection, and Pneumocystis pneumonia. TMS is usually well-tolerated. Occasional side effects include nausea and decreased appetite. Septra is not recommended for infants less than two months of age. Do not take this medication if you have experienced severe side effects or allergy to sulfa medicine. You should stop this medicine at once and contact your physician if you develop any rash, joint pain, shortness of breath, bruising, or jaundice ( yellow color in the skin), or if you develop any other new or unusual symptoms. Epsom Salt Soaks Soak the wound area in a container of warm epsom salt water. If you can't get the wound area into a bucket or mas, use a folded towel soaked in the epsom salt solution and apply to the area. Use clean hot tap water (about the temperature of a very warm bath), mixing in about one (1) teaspoon for every pint of water. Two gallon --> 16 teaspoons Epsom Salts One gallon --> 8 teaspoons Epsom Salts Two quarts --> 4 teaspoons Epsom Salts One quart --> 2 teaspoons Epsom Salts Soak the wound for about 20 minutes while gently moving it around in the water. Repeat this four (4) times a day. Soap Cleansing Gently wash the wound daily using a mild soap (like Ivory, Phisoderm, Neutrogena). Use warm water, rubbing gently until all debris, ooze, and crusting have been washed from the wound. Allow to dry briefly (about 10 minutes) after cleaning. Repeat this cleansing at least three times a day for the first two days and then once or twice a day. FOLLOW-UP CARE: Most simple abscesses will not require a follow up visit. Your abscess does not require I&D at this time. If the area becomes larger more inflamed develops a pus pocket you may need to return to the ED for the abscess to be opened.. Prescriptions: Cephalexin Monohydrate [Keflex 500 mg Capsule] 500 mg PO Q6H 5 Days capsule Sulfamethoxazole/Trimethoprim [Septra-Ds 800-160 mg Tablet] 1 tab PO BID #20 tablet Forms: Elevated Blood Pressure, Smoking Cessation Education
== END 2017-10-22 22:44 | disposition home or self-care (01) ==
LOC: ER 20:50
DX: L02.215 Cutaneous abscess of perineum (principal); R19.03 Right lower quadrant abdominal swelling, mass and lump; F17.210 Nicotine dependence, cigarettes, uncomplicated; Z88.6 Allergy status to analgesic agent; Z88.0 Allergy status to penicillin; Z91.040 Latex allergy status
CPT/HCPCS: 99406; 99281; J3490

== ENCOUNTER 2017-11-23 22:58 | Emergency (ER) | payer MEDICAID ==
--- NOTE | 2017-11-24 00:19 | ER Document Report ---
ED GI/ - General Chief Complaint: Abdominal Pain Stated Complaint: ABDOMINAL PAIN Time Seen by Provider: 11/24/17 00:06 Notes: Patient is a 32-year-old female who comes emergency department for chief complaint of lower back pain for the past several months, abdominal pain for the past couple of months. She also has intermittent "cough and choke symptoms" . She denies fever chills, nausea or vomiting, she denies any difficulty with eating or bowel movements, she denies any dizziness or shortness of breath. She denies any injury. Past medical history of cholecystectomy, tubal ligation , ventral hernia repair, she takes no daily medications, she smokes, she denies alcohol or recreational drugs. LMP last week. TRAVEL OUTSIDE OF THE [place] IN LAST 30 DAYS: No - Related Data Allergies/Adverse Reactions: acetaminophen [From [place]] Allergy (Verified 10/04/17 17:10) amoxicillin Allergy (Verified 10/04/17 17:10) hydrocodone [From [place]] Allergy (Verified 10/04/17 17:10) latex Allergy (Verified 10/22/17 20:54) Penicillins Allergy (Verified 10/04/17 17:10) Past Medical History - General Information source: Patient - Social History Smoking Status: Never Smoker Frequency of alcohol use: None Drug Abuse: None Lives with: Family Family History: Arthritis, COPD, DM, Hypertension. denies: CAD, CVA, Hyperlipidemia, Malignancy, Thyroid Disfunction Pulmonary Medical History: Reports: Hx Asthma Renal/ Medical History: Denies: Hx Peritoneal Dialysis Musculoskeltal Medical History: Reports Hx Musculoskeletal Trauma Skin Medical History: Reports Hx Cellulitis Past Surgical History: Reports: Hx Abdominal Surgery - hernia, Hx Section - x2, Hx Cholecystectomy, Hx Vascular Surgery - Repair of artery to right hand - Immunizations Hx Diphtheria, Pertussis, Tetanus Vaccination: Yes Review of Systems - Review of Systems Constitutional: No symptoms reported EENT: No symptoms reported Cardiovascular: No symptoms reported Respiratory: No symptoms reported Gastrointestinal: See HPI Genitourinary: See HPI Female Genitourinary: No symptoms reported Musculoskeletal: See HPI Skin: No symptoms reported Hematologic/Lymphatic: No symptoms reported Neurological/Psychological: No symptoms reported Physical Exam - Vital signs Vitals: Temp Pulse Resp BP Pulse Ox 98.1 F 87 18 150/93 H 96 11/23/17 23:04 11/23/17 23:04 11/23/17 23:04 11/23/17 23:04 11/23/17 23:04 - General General appearance: Appears well In distress: None - Smiling, alert, talkative, well-appearing - HEENT Head: Normocephalic, Atraumatic Eyes: Normal Conjunctiva: Normal Extraocular movements intact: Yes Eyelashes: Normal Pupils: PERRL Nasal: Normal Mouth/Lips: Normal Mucous membranes: Normal Pharynx: Normal Neck: Normal - Respiratory Respiratory status: No respiratory distress Breath sounds: Normal. No: Decreased air movement, Wheezing - Cardiovascular Rhythm: Regular. No: Tachycardia Heart sounds: Normal auscultation, S1 appreciated, S2 appreciated - Abdominal Inspection: Normal Distension: Other - Questionable mild distention Tenderness: Nontender. No: Tender - Back Back: Normal, Nontender. No: Tender - Extremities General upper extremity: Normal inspection, Nontender, Normal strength, Normal temperature General lower extremity: Normal inspection, Nontender, Normal strength, Normal temperature - Neurological Neuro grossly intact: Yes Cognition: Normal Orientation: AAOx4 [place] Coma Scale Eye Opening: Spontaneous [place] Coma Scale Verbal: Oriented [place] Coma Scale Motor: Obeys Commands [place] Coma Scale Total: 15 Speech: Normal Cranial nerves: Normal Cerebellar coordination: Normal Motor strength normal: LUE, RUE, LLE, RLE Additional motor exam normals: Equal shirt trimmer Sensory: Normal - Skin Skin Temperature: Warm Skin Moisture: Dry Skin Color: Normal Course - Re-evaluation Re-evalutation: Patient smiling, talkative, and well appearing. Benign abdominal exam with no noted tenderness, questionable mild distention, good bowel sounds. Lower back pain with bilateral lumbar tenderness which is mild, no neurological deficits, no injury, ongoing symptoms for a long time. CBC, chemistry, urinalysis, acute abdominal series including single view chest all unremarkable. Vital signs unremarkable other than mild hypertension. Very low suspicion of acute etiology of abdominal pain and back pain. Patient will be started on muscle relaxers for her back, provided with discussion of stool softener and pain management for her belly, discussed follow-up, discussed return precautions, patient states satisfaction and agreement with plan. - Vital Signs Vital signs: Temp Pulse Resp BP Pulse Ox 98.5 F 82 20 137/89 H 98 11/24/17 02:41 11/24/17 02:41 11/24/17 02:41 11/24/17 02:41 11/24/17 02:41 - Laboratory Result Diagrams: 11/24/17 00:50 11/24/17 00:50 Laboratory results interpreted by me: 11/24/17 11/24/17 11/24/17 00:50 00:50 01:13 Hgb 11.5 L Hct 35.6 L MCV 76 L MCH 24.5 L RDW 16.4 H AST 13 L Urine Blood MODERATE H Discharge - Discharge Clinical Impression: Lower back pain Qualifiers: Chronicity: acute Back pain laterality: bilateral Sciatica presence: without sciatica Qualified Code(s): M54.5 - Low back pain Abdominal pain Qualifiers: Abdominal location: generalized Qualified Code(s): R10.84 - Generalized abdominal pain Condition: Stable Disposition: HOME, SELF-CARE Additional Instructions: In regards to back, this appears to be musculoskeletal, I recommend Robaxin muscle relaxer prescribed, apply heat to the area, [id number] ibuprofen, avoid lifting and twisting until symptoms improve. For your abdomen and recommend that you take your Dulcolax for the next 2-3 days , take the ketorolac pain medicine if needed, increase fiber and fluids in your diet. Follow-up with primary care. Return if you worsen including vomiting, difficulty breathing, fever, severe abdominal pain, or any other concerning or worsening symptoms. Prescriptions: Ketorolac Tromethamine [Toradol 10 mg Tablet] 10 mg PO Q8HP PRN #24 tablet PRN Reason: Methocarbamol [Robaxin 750 mg Tablet] 750 mg PO Q6 #20 tablet Forms: Elevated Blood Pressure
[2017-11-24 01:04] LABS: ABSOLUTE BASOPHILS # (AUTO) 0.1 10^3/uL (0.0-0.2); ABSOLUTE EOSINOPHILS # (AUTO) 0.2 10^3/uL (0.0-0.6); ABSOLUTE LYMPHOCYTES (AUTO) 2.8 10^3/uL (0.5-4.7); ABSOLUTE MONOCYTES (AUTO) 0.5 10^3/uL (0.1-1.4); BASOPHILS % (AUTO) 0.7 % (0-2); EOSINOPHILS % (AUTO) 2.1 % (0-6); HEMATOCRIT 35.6 % (36.0-47.0); HEMOGLOBIN 11.5 g/dL (12.0-15.5); LYMPHOCYTES % (AUTO) 32.6 % (13-45); MEAN CORPUSCULAR HEMOGLOBIN 24.5 pg (27.0-33.4); MEAN CORPUSCULAR HGB CONC 32.4 g/dL (32.0-36.0); MEAN CORPUSCULAR VOLUME 76 fl (80-97); MONOCYTES % (AUTO) 5.4 % (3-13); PLATELET COUNT 290 10^3/uL (150-450); RED BLOOD COUNT 4.71 10^6/uL (3.72-5.28); RED CELL DISTRIBUTION WIDTH 16.4 % (11.5-14.0); SEGMENTED NEUTROPHILS % (AUTO) 59.2 % (42-78); TOTAL CELLS COUNTED % (AUTO) 100 %; WHITE BLOOD COUNT 8.5 10^3/uL (4.0-10.5)
[2017-11-24 01:20] LABS: ALANINE AMINOTRANSFERASE 13 U/L (9-52); ALBUMIN 4.2 g/dL (3.5-5.0); ALKALINE PHOSPHATASE 82 U/L (38-126); ANION GAP 10 (5-19); ASPARTATE AMINO TRANSFERASE 13 U/L (14-36); BILIRUBIN,DIRECT 0.1 mg/dL (0.0-0.4); BILIRUBIN,TOTAL 0.3 mg/dL (0.2-1.3); BLOOD UREA NITROGEN 11 mg/dL (7-20); CALCIUM 9.8 mg/dL (8.4-10.2); CARBON DIOXIDE 27 mmol/L (22-30); CHLORIDE 104 mmol/L (98-107); GLUCOSE 84 mg/dL (75-110); POTASSIUM 3.8 mmol/L (3.6-5.0); SODIUM 140.8 mmol/L (137-145); TOTAL PROTEIN 6.7 g/dL (6.3-8.2)
[2017-11-24 01:43] LABS: APPEARANCE,URINE CLOUDY; BILIRUBIN,URINE NEGATIVE (NEGATIVE); COLOR,URINE YELLOW; GLUCOSE, URINE NEGATIVE (NEGATIVE); KETONES,URINE NEGATIVE (NEGATIVE); LEUKOCYTE ESTERASE,URINE NEGATIVE (NEGATIVE); NITRITE,URINE NEGATIVE (NEGATIVE); PROTEIN,URINE NEGATIVE (NEGATIVE); URINE SPECIFIC GRAVITY 1.012; UROBILINOGEN,URINE NEGATIVE mg/dL (<2.0)
--- NOTE | 2017-11-24 02:36 | RADIOLOGY REPORT (SQ) ---
EXAM DESCRIPTION: ACUTE ABDOMEN SERIES CLINICAL HISTORY: 32 years, Female, sharp mid abd pain COMPARISON: None. FINDINGS: Intestinal gas pattern is within normal limits. No suspicious calcification. Grossly intact skeletal structures. No acute cardiopulmonary findings. Right upper abdominal clips. IMPRESSION: No acute findings.
[2017-11-24 02:58] VITALS: BP 137/89
== END 2017-11-24 02:45 | disposition home or self-care (01) ==
LOC: ER 22:58
DX: M54.5 Low back pain (principal); R10.84 Generalized abdominal pain; R05 Cough; I10 Essential (primary) hypertension; J45.909 Unspecified asthma, uncomplicated
CPT/HCPCS: 36415; 74022; 80053; 81001; 84703; 85025; 99284

== ENCOUNTER 2017-12-02 22:53 | Emergency (ER) | payer MEDICAID ==
--- NOTE | 2017-12-03 00:02 | ER Document Report ---
ED GI/ - General Chief Complaint: Abdominal Pain Stated Complaint: BOWEL PROBLEM Time Seen by Provider: 12/03/17 00:02 Mode of Arrival: Ambulatory Information source: Patient Notes: 32-year-old female complaining of anal pain and bleeding. Started 4 days ago she took a Dulcolax because she was constipated. No fever or chills. No abdominal pain. TRAVEL OUTSIDE OF THE [place] IN LAST 30 DAYS: No - Related Data Allergies/Adverse Reactions: acetaminophen [From [place]] Allergy (Verified 10/04/17 17:10) amoxicillin Allergy (Verified 10/04/17 17:10) hydrocodone [From [place]] Allergy (Verified 10/04/17 17:10) latex Allergy (Verified 10/22/17 20:54) Penicillins Allergy (Verified 10/04/17 17:10) Past Medical History - General Information source: Patient - Social History Smoking Status: Current Every Day Smoker Frequency of alcohol use: None Drug Abuse: None Lives with: Family Family History: Arthritis, COPD, DM, Hypertension Pulmonary Medical History: Reports: Hx Asthma Renal/ Medical History: Denies: Hx Peritoneal Dialysis Musculoskeltal Medical History: Reports Hx Musculoskeletal Trauma Skin Medical History: Reports Hx Cellulitis Past Surgical History: Reports: Hx Section - x2, Hx Cholecystectomy, Hx Herniorrhaphy, Hx Vascular Surgery - Repair of artery to right hand - Immunizations Hx Diphtheria, Pertussis, Tetanus Vaccination: Yes Review of Systems - Review of Systems Constitutional: No symptoms reported EENT: No symptoms reported Cardiovascular: No symptoms reported Respiratory: No symptoms reported Gastrointestinal: See HPI Genitourinary: No symptoms reported Female Genitourinary: No symptoms reported Musculoskeletal: No symptoms reported Skin: No symptoms reported Hematologic/Lymphatic: No symptoms reported Neurological/Psychological: No symptoms reported Physical Exam - Vital signs Vitals: Temp Pulse Resp BP Pulse Ox 98.4 F 92 16 150/99 H 100 12/02/17 23:02 12/02/17 23:02 12/02/17 23:02 12/02/17 23:02 12/02/17 23:02 Interpretation: Normal - General General appearance: Appears well, Alert In distress: None - HEENT Head: Normocephalic, Atraumatic Eyes: Normal Pupils: PERRL Neck: Supple. No: Lymphadenopathy - Respiratory Respiratory status: No respiratory distress Chest status: Nontender Breath sounds: Normal Chest palpation: Normal - Cardiovascular Rhythm: Regular Heart sounds: Normal auscultation Murmur: No - Abdominal Inspection: Normal Distension: No distension Bowel sounds: Normal Tenderness: Nontender Organomegaly: No organomegaly - Rectal Tenderness: Yes Hemorrhoids: Anal fissure - immediate bleed inferior anus with exam form fissure - Back Back: Normal, Nontender - Extremities General upper extremity: Normal inspection, Nontender, Normal color, Normal ROM , Normal temperature General lower extremity: Normal inspection, Nontender, Normal color, Normal ROM , Normal temperature, Normal weight bearing. No: Maile's sign - Neurological Neuro grossly intact: Yes Cognition: Normal Orientation: AAOx4 [place] Coma Scale Eye Opening: Spontaneous Patrick Coma Scale Verbal: Oriented [place] Coma Scale Motor: Obeys Commands Patrick Coma Scale Total: 15 Speech: Normal Motor strength normal: LUE, RUE, LLE, RLE Sensory: Normal - Psychological Associated symptoms: Normal affect, Normal mood - Skin Skin Temperature: Warm Skin Moisture: Dry Skin Color: Normal Skin irregularity: negative: Rash Course - Vital Signs Vital signs: Temp Pulse Resp BP Pulse Ox 98.4 F 92 16 150/99 H 100 12/02/17 23:02 12/02/17 23:02 12/02/17 23:02 12/02/17 23:02 12/02/17 23:02 Discharge - Discharge Clinical Impression: Anal fissure Constipation Qualifiers: Constipation type: other constipation type Qualified Code(s): K59.09 - Other constipation Condition: Good Disposition: HOME, SELF-CARE Instructions: Anal Fissure ([facility]) Additional Instructions: 1 capful of MiraLAX with a full glass of water daily Vaseline to anus Do not sit on the toilet and strain Return to the emergency room if worsening symptoms
[2017-12-03 00:55] VITALS: BP 146/98
== END 2017-12-03 00:54 | disposition home or self-care (01) ==
LOC: ER 22:53
DX: K60.2 Anal fissure, unspecified (principal); K59.09 Other constipation; F17.200 Nicotine dependence, unspecified, uncomplicated; Z90.49 Acquired absence of other specified parts of digestive tract; Z88.0 Allergy status to penicillin; Z91.040 Latex allergy status
CPT/HCPCS: 99283

== ENCOUNTER 2018-01-01 13:22 | Emergency (ER) | payer MEDICAID ==
[2018-01-01] MEDS ORDERED: KETOROLAC TROMETHAMINE INJ/PF 30 MG/1 ML SDV IM ONE (14:32)
--- NOTE | 2018-01-01 14:35 | ER Document Report ---
ED Neck/Back Problem - General Chief Complaint: Back Pain Stated Complaint: BACK PAIN Time Seen by Provider: 01/01/18 14:18 Mode of Arrival: Ambulatory Information source: Patient TRAVEL OUTSIDE OF THE [place] IN LAST 30 DAYS: No - HPI Patient complains to provider of: Upper back, Lower back Notes: Patient is here with complaints of back pain and breast pain. States that her breasts have been hurting for about a month now. She denies any nipple discharge, redness, swelling, lumps. Seems to be worse when she sitting up. She states that she should not be , she has had a tubal ligation in the past. She is also here with complaints of back pain. She has a history of low back pain which she has had for many years. She denies any new falls, trauma, injury. She also complains now of some mid back pain. There is no trauma or injury to her upper back as well. She denies any bowel or bladder dysfunction. No blood thinners. No fever. No nausea, vomiting, diarrhea. No dysuria or hematuria. No vaginal bleeding or discharge. No rash. She does complain of some tingling down her left leg. Seems to be chronic. No rash. No other complaints at this time. - Related Data Allergies/Adverse Reactions: acetaminophen [From [place]] Allergy (Verified 01/01/18 13:23) amoxicillin Allergy (Verified 01/01/18 13:23) hydrocodone [From [place]] Allergy (Verified 01/01/18 13:23) latex Allergy (Verified 01/01/18 13:23) Penicillins Allergy (Verified 01/01/18 13:23) Past Medical History - Social History Smoking Status: Current Every Day Smoker Family History: Arthritis, COPD, DM, Hypertension Pulmonary Medical History: Reports: Hx Asthma Renal/ Medical History: Denies: Hx Peritoneal Dialysis Musculoskeltal Medical History: Reports Hx Musculoskeletal Trauma Skin Medical History: Reports Hx Cellulitis Past Surgical History: Reports: Hx Abdominal Surgery - hernia, Hx Section - x2, Hx Cholecystectomy, Hx Herniorrhaphy, Hx Vascular Surgery - Repair of artery to right hand - Immunizations Hx Diphtheria, Pertussis, Tetanus Vaccination: Yes Review of Systems - Review of Systems -: Yes All other systems reviewed and negative Physical Exam - Vital signs Vitals: Temp Pulse Resp BP Pulse Ox 98.7 F 91 18 141/94 H 98 05/16/18 13:28 01/01/18 13:28 01/01/18 13:28 01/01/18 13:28 01/01/18 13:28 - Notes Notes: GENERAL: alert, cooperative, nontoxic, no distress. HEAD: normocephalic, atraumatic EYES: conjunctiva pink without discharge, no external redness or swelling. EARS: no external swelling, no external redness NOSE: atraumatic, no external swelling MOUTH/THROAT: mucous membranes moist and pink, posterior pharynx without erythema, swelling, exudate. No trismus or drooling. NECK: soft, supple, full range of motion, no meningismus. CHEST: no distress, lungs clear and equal throughout. No wheezing, rales, rhonchi. CARDIAC: regular rate and rhythm, no murmur, normal capillary refill, normal pulses. No peripheral edema noted. ABDOMEN: soft, nontender, no pusatile mass. BACK: No CVA tenderness. Tenderness to the bilateral thoracic paraspinal muscles. No midline tenderness step-offs or crepitus. No midline tenderness step-offs or crepitus to palpation of the lumbar spine. EXTREMITIES: full range of motion of all extremities. No redness, no swelling. NEURO: alert and oriented A&O x 3, no focal deficits, full range of motion of all extremities. 5 out of 5 flexion and extension of the lower extremities bilaterally. Patellar and Achilles deep tendon reflexes are +2 bilaterally. Normal sensation with no saddle anesthesia. Patient can dorsiflex the great toes bilaterally. PYSCH: appropriate mood, affect. Patient is cooperative. SKIN: pink, warm, dry, no rash. BREAST: Performed with female screen and cyclone repairer at the bedside. Breast exam is unremarkable. There is no nipple discharge. There is mild tenderness to palpation of most of the right breast with no obvious swelling noted. There were no masses. Breasts appear to be symmetric at this time. Course - Re-evaluation Re-evalutation: 01/01/18 15:09 Patient is nontoxic appearing with stable vitals. She is here with complaints of back pain which is chronic. She now has some mid back pain which seems to be new. No bowel or bladder dysfunction. No sign or risk of cauda equina, epidural abscess/bleed, discitis, osteomyelitis, AAA, pyelonephritis. She has a benign exam with some tenderness along the thoracic paraspinal muscles. Remainder of her exam is unremarkable with normal reflexes and sensation. No saddle anesthesia. Is also complaining of some breast pain for the last month. Breast exam is unremarkable for any lesions, masses or nipple discharge. She had some tenderness essentially to the entire right breast and some intermittent areas of the left breast. Urine is negative. This point the patient was instructed to follow-up with her primary care doctor for potential mammogram or other further outpatient workup. In reviewing her previous visits, she was noted to have a CT of the abdomen and pelvis as well as an ultrasound showing some potentially cystic type lesions on both of her ovaries. She was supposed to have a recheck ultrasound to ensure that these have resolved and has not done so thus far. I did stress the importance of her getting this done as an outpatient. She will be given a referral to [facility] regarding this. Patient is instructed to follow-up with [facility], primary care at the next available appointment. Follow-up sooner for worsening pain, fever, numbness, tingling, weakness, bowel or bladder dysfunction, or for any further concerns. The patient is noted to have elevated blood pressure during today's emergency department visit. The patient was informed of this finding. The patient was instructed that this may be related to pre-hypertension and requires further evaluation with a primary care provider. The patient has no hypertensive symptoms at this time. The patient's emergency department workup and current diagnosis were explained to the patient and or family. Follow-up instructions were provided. Medications if prescribed were discussed. Instructions for when to return to the emergency department including specific worrisome symptoms were discussed with the patient and/or family. - Vital Signs Vital signs: Temp Pulse Resp BP Pulse Ox 98.7 F 91 18 141/94 H 98 01/01/18 13:28 01/01/18 13:28 01/01/18 13:28 01/01/18 13:28 01/01/18 13:28 Discharge - Discharge Clinical Impression: Breast pain Back pain Qualifiers: Back pain location: thoracic back pain Chronicity: acute Back pain laterality: bilateral Qualified Code(s): M54.6 - Pain in thoracic spine Condition: Stable Disposition: HOME, SELF-CARE Instructions: Low Back Pain ([facility]), Muscle Strain ([facility]) Additional Instructions: Take medications as prescribed. Follow-up with [facility] for a repeat pelvic ultrasound at the next available appointment. You can also discuss her breast tenderness with them. Follow-up with her primary care doctor regarding her back pain. Follow-up sooner for worsening pain, fever, numbness, tingling, weakness, bowel or bladder dysfunction, severe abdominal pain, or for any further concerns. Your blood pressure was elevated during today's visit. Have this rechecked with your doctor. Prescriptions: Diclofenac Sodium [Voltaren 50 Mg Tablet.] 50 mg PO BID #20 tablet. Tizanidine HCl [Zanaflex 4 Mg Tablet] 4 mg PO BID PRN #10 tablet PRN Reason: Forms: Elevated Blood Pressure, Smoking Cessation Education Referrals: FREDRICK WILEY MD [ACTIVE STAFF] - Follow up as needed
[2018-01-01 15:22] VITALS: BP 126/91
== END 2018-01-01 15:22 | disposition home or self-care (01) ==
LOC: ER 13:22
DX: N64.4 Mastodynia (principal); M54.6 Pain in thoracic spine; M54.5 Low back pain; F17.200 Nicotine dependence, unspecified, uncomplicated; J45.909 Unspecified asthma, uncomplicated
CPT/HCPCS: 99284; 96372; 81025; J1885